=== PATIENT | female | born 1960 | race Two or more races ===

== ENCOUNTER 2017-04-16 22:45 | Emergency (ER) | payer MEDICAID ==
[~2017-04-16] VITALS: Ht 160 cm; Wt 63.5 kg
[2017-04-16 23:04] VITALS: BP 151/82
== END 2017-04-17 01:21 | disposition home or self-care (01) ==
LOC: ER 22:46
DX: J40 Bronchitis, not specified as acute or chronic (principal); J45.909 Unspecified asthma, uncomplicated

== ENCOUNTER 2018-04-20 13:17 | Emergency (ER) | payer MEDICAID ==
[~2018-04-20] VITALS: Ht 152.4 cm; Wt 63.5 kg
[2018-04-20 13:43] VITALS: BP 145/77
== END 2018-04-20 16:44 | disposition left against medical advice (07) ==
LOC: ER 13:22
DX: M25.561 Pain in right knee (principal); Z53.21 Procedure and treatment not carried out due to patient leaving prior to being seen by health care provider